=== PATIENT | female | born 1965 | race Two or more races ===

== ENCOUNTER 2021-02-10 09:24 | Day surgery (SDC) | payer OTHER | END 2021-02-10 17:00 | disposition home or self-care (01) | LOC: AMB-ENDOS 09:24 | PROVIDERS: ATTEND Colon & Rectal Surgery | DX: D13.1 Benign neoplasm of stomach (principal); K64.0 First degree hemorrhoids; Z20.822 Contact with and (suspected) exposure to COVID-19 ==

== ENCOUNTER 2021-07-10 11:42 | Inpatient (IN) | payer OTHER ==
[~2021-07-10] VITALS: Ht 152.4 cm; Wt 54.4 kg
[2021-07-22] MEDS ORDERED: PROTONIX40 MG PO (14:25)
== END 2021-07-22 14:46 | disposition home or self-care (01) | DRG 330 ==
LOC: ADM 14:30 → EDSTATUS 14:30 → O/R 07-12 06:21 → SURG 07-12 06:21 → SURH 07-12 07:00 → SURG 07-12 22:42
PROVIDERS: ADMIT Colon & Rectal Surgery; ATTEND Colon & Rectal Surgery
PROC: 0DQ80ZZ Repair Small Intestine, Open Approach (ICD-10-PCS; 2021-07-12)
PROC: 0D1B0Z4 Bypass Ileum to Cutaneous, Open Approach (ICD-10-PCS; 2021-07-12)
PROC: 0KRL07Z Replacement of Left Abdomen Muscle with Autologous Tissue Substitute, Open Approach (ICD-10-PCS; 2021-07-12)
PROC: 0KRK07Z Replacement of Right Abdomen Muscle with Autologous Tissue Substitute, Open Approach (ICD-10-PCS; 2021-07-12)
PROC: 0WQF0ZZ Repair Abdominal Wall, Open Approach (ICD-10-PCS; 2021-07-12)
PROC: 0DJD8ZZ Inspection of Lower Intestinal Tract, Via Natural or Artificial Opening Endoscopic (ICD-10-PCS; 2021-07-12)
PROC: 0DQE0ZZ Repair Large Intestine, Open Approach (ICD-10-PCS; principal; 2021-07-12 08:45)
PROC: 02HV33Z Insertion of Infusion Device into Superior Vena Cava, Percutaneous Approach (ICD-10-PCS; 2021-07-16)
DX: Z43.3 Encounter for attention to colostomy (principal); K91.72 Accidental puncture and laceration of a digestive system organ or structure during other procedure; Z20.822 Contact with and (suspected) exposure to COVID-19; K43.2 Incisional hernia without obstruction or gangrene

== ENCOUNTER 2022-01-19 14:15 | Inpatient (IN) | payer OTHER ==
[~2022-01-19 14:15] MED LIST: PROTONIX40 MG PO
[2022-01-30] MEDS ORDERED: SIMETHICONE80 MG PO (08:24)
[2022-01-30] MEDS ORDERED: INTESTINEX680 M1 PO (08:24)
[2022-01-30] MEDS ORDERED: LEVSIN/SL0.125 MG SL (08:24)
== END 2022-01-30 12:50 | disposition home or self-care (01) | DRG 348 ==
LOC: O/R 01-24 06:48 → SURH 01-24 06:48 → MEDI 01-24 20:07 → SURH 01-25 16:19
PROVIDERS: ADMIT Colon & Rectal Surgery; ATTEND Colon & Rectal Surgery
PROC: 0DBB4ZZ Excision of Ileum, Percutaneous Endoscopic Approach (ICD-10-PCS; principal; 2022-01-24 12:45)
DX: Z43.2 Encounter for attention to ileostomy (principal); K92.1 Melena; D12.8 Benign neoplasm of rectum; K66.0 Peritoneal adhesions (postprocedural) (postinfection)